=== PATIENT | male | born 1980 ===

== ENCOUNTER 2017-07-30 08:04 | Day surgery (SDC) | payer MEDICAID ==
[2017-07-30] VITALS (11 sets, daily range): BP systolic 90–111; BP diastolic 54–70
[2017-07-30] MEDS ORDERED: morphine 4 MG/ML inj SYRINge IV PRN (09:00)
[2017-07-30] MEDS ORDERED: ENOX40SY7 SUBCUT (09:57)
[2017-07-30] MEDS ORDERED: HYDR-565 PO ×2 (09:57)
[2017-07-30] MEDS ORDERED: POLY17PO10 PO (09:57)
[2017-07-30] MEDS ORDERED: VANCOMYCIN GT (09:57)
[2017-07-30] MEDS ORDERED: MORP2SYR7 IV (09:57)
[2017-07-30] MEDS ORDERED: PROTONIC GT (09:57)
[2017-07-30] MEDS ORDERED: iohexol 300 MG/1 ML 50ml polymer ONE (12:22)
[2017-07-30] MEDS ORDERED: LIDOcaine 1%/PF (10mg/ml) 5ml vial ONE (12:22)
== END 2017-07-30 15:33 ==
LOC: SSTAY O 08:04
PROVIDERS: ATTEND Radiology Diagnostic Radiology
DX: K94.23 Gastrostomy malfunction (principal); F19.21 Other psychoactive substance dependence, in remission; Z88.1 Allergy status to other antibiotic agents; Z87.891 Personal history of nicotine dependence; Z72.89 Other problems related to lifestyle; Z79.82 Long term (current) use of aspirin; Z79.2 Long term (current) use of antibiotics; Z79.899 Other long term (current) drug therapy; Z98.890 Other specified postprocedural states
CPT/HCPCS: 49450; 94760; C1769; J2001; J2270; Q9967; 49460; 49465